=== PATIENT | male | born 1970 | race Caucasian/White ===

== ENCOUNTER → 2020-12-12 | Outpatient (CLI) | payer BC ==
--- NOTE | 2020-12-13 08:28 | US ---
EXAMINATION TYPE: US venous doppler duplex LE LT DATE OF EXAM: 12/12/2020 4:11 PM COMPARISON: NONE CLINICAL HISTORY: 50-year-old male M79.605 Left leg pain. Left leg swelling x 4 to 5 days, patient ta bela aspirin SIDE PERFORMED: Left TECHNIQUE: The lower extremity deep venous system is examined utilizing real time linear array sonog omari with graded compression, doppler sonography and color-flow sonography. FINDINGS: VESSELS IMAGED: Common Femoral Vein Deep Femoral Vein Greater Saphenous Vein * Femoral Vein Popliteal Vein Small Saphenous Vein * Proximal Calf Veins (* superficial vessels) Left Leg: Appears negative for DVT IMPRESSION: No evidence for DVT within the left lower extremity imaged from the groin to the upper calf.
== END ==
LOC: RADUSWWP 15:44
PROVIDERS: ATTEND Internal Medicine
DX: R22.42 Localized swelling, mass and lump, left lower limb (principal); M79.605 Pain in left leg

== ENCOUNTER → 2020-12-19 | Outpatient (CLI) | payer BC ==
--- NOTE | 2020-12-19 14:06 | XR ---
EXAMINATION TYPE: XR foot complete LT DATE OF EXAM: 12/19/2020 COMPARISON: NONE HISTORY: pain and swelling TECHNIQUE: Three views are submitted. FINDINGS: Comminuted displaced fracture base second metatarsal. Could not exclude a chip fracture of the base o f the first metatarsal. Lisfranc injury in the differential diagnosis recommend MRI. Calcaneal spur n oted. IMPRESSION: 1. Comminuted fracture base second metatarsal. Could not exclude a chip fracture base first metatarsa l. Recommend MRI to assess for Lisfranc fracture.
== END | disposition home or self-care (01) ==
LOC: RADXRYALE 13:12
PROVIDERS: ATTEND Internal Medicine
DX: S92.322A Displaced fracture of second metatarsal bone, left foot, initial encounter for closed fracture (principal)

== ENCOUNTER → 2020-12-26 | Outpatient (CLI) | payer BC ==
--- NOTE | 2020-12-26 09:25 | CT ---
EXAMINATION TYPE: CT foot LT wo con DATE OF EXAM: 12/26/2020 COMPARISON: Left foot x-ray one week ago. HISTORY: Pain and swelling left foot, displaced fracture second metatarsal, Lisfranc fracture. CT left foot without contrast. Automated exposure control for dose reduction was used. FINDINGS: First metatarsophalangeal joint shows severe narrowing with [id number] formation along the lateral dorsal aspect axial image 54 series 3 and sagittal image 36. There is tiny 4 mm triangular fracture f ragment axial image 54 at lateral aspect of base of first metatarsal with donor site uncertain, this correlates with plain film, favored from comminuted displaced second base metatarsal fracture. Comminuted intra-articular displaced fracture through base of second metatarsal with multiple small o ssific fracture fragments. Largest fracture fragment is laterally and dorsally displaced from articul ation with the middle cuneiform. Base of third metatarsal with a few tiny ossific fragments consistent with comminuted intra-articular fracture at its base reference axial image 56 series 3, majority of the third metatarsal is laterall y displaced from articulation with the lateral cuneiform. There is severe narrowing at its articulati on with the lateral distal aspect. Base of fourth metatarsal shows comminuted intra-articular fracture with small fracture fragments pérez ng the articulation with the cuneiform medial aspect. No dislocation. Fifth metatarsal is intact with normal articulation. There is associated moderate diffuse intramuscular edema along with moderate soft tissue swelling and subcutaneous edema greatest along the dorsal aspect. Hindfoot structures are maintained. Normal sinus tarsi fat is seen. Flexion of the toes incidentally noted. IMPRESSION: Complex Lisfranc fracture dislocation injury as detailed above with most prominent findin gs involving the base of second metatarsal but involvement of the third and fourth metatarsals noted. Predominantly lateral disruption is seen.
== END | disposition home or self-care (01) ==
LOC: RADCTMAIN 07:31
PROVIDERS: ATTEND Podiatrist
DX: S92.322A Displaced fracture of second metatarsal bone, left foot, initial encounter for closed fracture (principal); S92.342A Displaced fracture of fourth metatarsal bone, left foot, initial encounter for closed fracture

== ENCOUNTER 2021-01-04 05:42 | Day surgery (SDC) | payer BC ==
[2021-01-02 11:59] VITALS: BMI 46.0
[~2021-01-04 05:42] MED LIST: ceFAZolin 3 GM in SODIUM CHLORIDE 0.9% 100 ML IVPB PRN
[2021-01-04] MEDS ORDERED: ONDANSETRON 4 MG/2 ML VIAL IVP ONE (05:54)
[2021-01-04] MEDS ORDERED: DEXAMETHASONE SOD PHOSPHATE 4 MG/ML 1 ML VIAL IV ONE (05:54)
[2021-01-04] MEDS ORDERED: LIDOCAINE 1% (10MG/ML) FOR IV START INTRADERMA PRN (05:54)
[2021-01-04] MEDS: LACTATED RINGERS 1,000 ML IV SCH ×2 (06:43→07:35)
[2021-01-04 06:50] LABS: Glucose,Whole Blood 232 mg/dL (75-99)
[2021-01-04] MEDS ORDERED: HYDROmorphone 0.5 MG/0.5 ML SYRINGE IVP PRN (07:00)
[2021-01-04] MEDS ORDERED: MIDAZOLAM 2 MG/2 ML VIAL IVP ONE (07:08)
[2021-01-04] MEDS ORDERED: LIDOCAINE 1% INJ 10MG/ML (20 ML MDV) ONE (07:33)
[2021-01-04] MEDS ORDERED: ePHEDrine SULFATE/0.9% NACL/PF 50 MG/5 ML SYRINGE IV ONE (07:33)
[2021-01-04] MEDS ORDERED: NEOSTIGMINE 1 MG/ML 10 ML VIAL ONE (07:33)
[2021-01-04] MEDS ORDERED: SUCCINYLCHOLINE CHLORIDE VIAL 200 MG/10 ML VIAL IV ONE (07:33)
[2021-01-04] MEDS ORDERED: ALBUTEROL HFA INHALER INHALATION ONE (07:33)
[2021-01-04] MEDS ORDERED: ROPIVACAINE 5 MG/ML 30 ML VIAL ONE (07:33)
[2021-01-04] MEDS ORDERED: GLYCOPYRROLATE 0.2 MG/ML 2 ML VIAL ONE (07:33)
[2021-01-04] MEDS ORDERED: INSULIN ASPART (NovoLOG) 100 UNIT/ML VIAL SQ ONE ×3 (07:33→12:15)
[2021-01-04] MEDS ORDERED: ROCURONIUM 10 MG/ML (5 ML VIAL) IV ONE (07:33)
[2021-01-04] MEDS ORDERED: MIDAZOLAM 2 MG/2 ML VIAL ONE (07:33)
[2021-01-04] MEDS ORDERED: PROPOFOL 10 MG/ML 20 ML VIAL IV ONE (07:33)
[2021-01-04] MEDS ORDERED: DEXAMETHASONE SOD PHOSPHATE 4 MG/ML 1 ML VIAL ONE (07:33)
[2021-01-04] MEDS ORDERED: PHENYLEPHRINE-0.9% NACL SYG 1,000 MCG/10 ML SYRINGE ONE (07:33)
[2021-01-04] MEDS ORDERED: fentaNYL (PF) 50 MCG/ML 2 ML AMP ONE (07:33)
[2021-01-04] MEDS ORDERED: LACTATED RINGERS 1,000 ML IV ONE ×2 (08:51)
[2021-01-04 10:37] VITALS: TEMP 96.8
--- NOTE | 2021-01-04 10:51 | P.OP ---
Date of Procedure: 01/04/21 Preoperative Diagnosis: Lisfranc fracture/dislocation left foot Postoperative Diagnosis: Same Procedure(s) Performed: Arthrodesis of multiple midtarsal joints left foot Implants: Novastep midfoot fusion plate (Lisfranc plate and 2 hole compression plate) 10 mL of bone allograft Anesthesia: PATRICK Surgeon: Bulmaro Roca Estimated Blood Loss (ml): 20 Pathology: none sent Condition: stable Disposition: PACU Indications for Procedure: Dislocated first through third tarsometatarsal joints with fracture of the base of the second metatarsal Description of Procedure: Prior to the patient being brought to the operating room, anesthesia administered a nerve block on the left lower extremity utilizing ultrasonic guidance and mild sedation. The patient was then brought into the operating room and placed on the table supine position. Timeout was taken to confirm correct patient identifiers, correct procedure, and correct site of surgery. When the room was in agreement the patient was induced and placed under general anesthesia. The tourniquet was placed on the left calf and a wedge underneath the left hip to internally rotate the left leg. The left leg was then prepped and draped in the usual manner. The leg was exsanguinated with an Esmarch bandage, elevated and then and the tourniquet inflated to 250 mmHg Attention was directed over the dorsal aspect of the left midfoot where a lazy S incision was made centered over the second metatarsal and second tarsometatarsal joint. The incision was deepened down to the saphenous tissue careful to identify, avoid, and retract any neurovascular structures and cauterize any bleeding vessels. Dissection was continued down to the fascia which was then incised and then blunt dissection continued down to the periosteum and capsule. These tissues were incised and reflected to expose the first through third tarsometatarsal joints. The capsules of the tarsometatarsal joints were incised to expose the joint surfaces. A joint preparation Was then used to remove all the articular cartilage between the segments of the first through third tarsometatarsal joints as well as the intercuneiform joint between 1 and 2. There is also a laterally displaced fracture of the base of the second metatarsal located approximately 10-12 mm from the tarsometatarsal joint. All soft tissue that was interposed between the arthrodesis segments and the fractures were sharply debrided. The joint surfaces were also fenestrated to promote bleeding. Then the first and second tarsometatarsal joints as well as intercuneiform joints and the fracture of the second metatarsal were packed with the allograft. Due to the instability a step Lisfranc plate was positioned and then the second tarsometatarsal joint fracture fixated first. This is done by first fixating the proximal segment of the plate to the intermediate cuneiform and then reducing the second metatarsal so that it was properly aligned and underlying the plate. Then the distal compression screw was placed through the second metatarsal which once advanced compressed the fracture and the arthrodesis site. Fluoroscopic imaging confirmed near normal alignment of the second metatarsal fracture as well as the tarsometatarsal joint. Then a large reduction clamp was used to reduce the medial column by first compressing the tarsometatarsal joint and then the locking screws in the proximal medial portion of the plate were then placed onto lock that reduction in place. Then the clamp was moved to the base of the first metatarsal which was then used to reduce the medial subluxation of the joint. Once that was completed a compression screw was placed distally through the first metatarsal to confirm compressed the arthrodesis segments. And then a locking screw placed distally in the first metatarsal to complete the construct. Final fluoroscopic imaging showed that the first and second tarsometatarsal joints were well reduced with near normal alignment compared to preoperatively. Attention then directed to the third tarsometatarsal joint where x-ray showed that there was lateral deviation of the third metatarsal the joint had artery band Bryden of articular cartilage and fenestrated. An elevator was used on the lateral side of the third metatarsal base was used as a lever to reduce the third metatarsal back in the proper position once it was properly aligned it was temporarily fixated and then a 2 hole plate was placed dorsally across the joint the proximal screw was placed first which was a locking screw. The distal screw was a combination locking compression screw that was positioned which allow the area to compress this maintain alignment formed a stable construct. Final fluoroscopic imaging showed reasonable alignment of the midfoot joints compared to preoperatively proper placement of hardware. Wound is thoroughly irrigated with antibiotic saline. Deep closure done with 2- 0 Vicryl. Subcu closure done with 3-0 Monocryl. Skin closure done with becky. A jumpstart dressing is applied over the incisions and a bulky dry dressing to the right foot. The tourniquet was released and capillary refill time return to all digits on the right foot. Patient then placed in a well-pad ded well molded below-knee plaster/posterior mold sugar tong splint. The ankle was held in neutral position as it dried. Once dried anesthesia was reversed and the patient was taken recovery. Patient tolerated above procedure and anesthesia well and went to recovery vital signs stable
--- NOTE | 2021-01-04 10:57 | P.ANPRN ---
Procedure Note - Anesthesia - Nerve Block Performed Left Adductor Canal Single Time Out Performed: Yes Date of Procedure: 01/04/21 Procedure Start Time: 07:02 Procedure Stop Time: 07:12 Location of Patient: PreOp Indication: Acute Post-Operative Pain, Requested by Surgeon Sedation Type: Sedate with meaningful contact maintained Preparation: Sterile Prep, Sterile Dressing Position: Supine Catheter: None Needle Types: On-Q Needle Gauge: 20 Ultrasound used to visualize needle placement: Yes Ultrasound used to observe medication spread: Yes Injectate: 0.5% Ropivacaine (see comment for volume) (20 ml + decadron 4 mg) Blood Aspirated: No Pain Paresthesia on Injection Noted: No Resistance on Injection: Normal Image Stored and Saved: Yes Events: Uneventful and Well Tolerated Left Popliteal Single Time Out Performed: Yes Date of Procedure: 01/04/21 Procedure Start Time: 07:14 Procedure Stop Time: 07:25 Location of Patient: PreOp Indication: Acute Post-Operative Pain, Requested by Surgeon Sedation Type: Sedate with meaningful contact maintained Preparation: Sterile Prep, Sterile Dressing Position: Supine Catheter: None Needle Types: On-Q Needle Gauge: 20 Ultrasound used to visualize needle placement: Yes Ultrasound used to observe medication spread: Yes Injectate: 0.5% Ropivacaine (see comment for volume) (20 ml + decadron 4 mg) Blood Aspirated: No Pain Paresthesia on Injection Noted: No Resistance on Injection: Normal Image Stored and Saved: Yes Events: Uneventful and Well Tolerated
[2021-01-04 11:12] LABS: Glucose,Whole Blood 242 mg/dL (75-99)
[2021-01-04 12:07] LABS: Glucose,Whole Blood 292 mg/dL (75-99)
[2021-01-04 12:23] VITALS: RESP 18
[2021-01-04 12:25] VITALS: BP 132/68; PULSE 98
== END 2021-01-04 12:45 | disposition home or self-care (01) ==
LOC: OR 05:42
PROVIDERS: ATTEND Podiatrist
DX: S92.812A Other fracture of left foot, initial encounter for closed fracture (principal); E11.9 Type 2 diabetes mellitus without complications; I10 Essential (primary) hypertension; Z79.899 Other long term (current) drug therapy
CPT/HCPCS: 28730; 64447; 87635; J2250; J1100; J0690; J2405; 64445; 76942